=== PATIENT | male | born 1985 | race Caucasian/White ===

== ENCOUNTER 2019-10-10 20:32 | Emergency (ER) | payer OTHER, MEDICAID ==
[~2019-10-10] VITALS: Ht 175.3 cm; Wt 95.3 kg
[2019-10-10 20:40] VITALS: BP_SYST 160
[2019-10-10] MEDS: DIPHENHYDRAMINE INJ 50 MG/ML VIAL IM ONE (23:24)
[2019-10-10] MEDS: HYDROcodone/ACETAMIN 10-325 MG TAB PO ONE (23:25)
[2019-10-10 23:30] VITALS: BP_SYST 134
== END 2019-10-10 23:30 | disposition home or self-care (01) ==
LOC: SED 20:32
DX: G89.29 Other chronic pain (principal); M25.50 Pain in unspecified joint; M79.18 Myalgia, other site; M31.30 Wegener's granulomatosis without renal involvement; Z79.899 Other long term (current) drug therapy
CPT/HCPCS: 96372; 99283; J1200